=== PATIENT | male | born 1950 | race Caucasian/White ===

== ENCOUNTER 2017-11-03 15:05 | Emergency (ER) | payer MEDICARE, BC ==
[2017-11-03 15:22] VITALS: BP 144/90
[2017-11-03] MEDS ORDERED: MAALOX/HYOSCYAMINE/LIDOCAINE 45 ML BTL PO ONE (15:30)
[2017-11-03] MEDS ORDERED: SODIUM CHLORIDE FLUSH 10ML SYR IVF ONE (15:30)
[2017-11-03] MEDS ORDERED: MAALOX/HYOSCYAMINE/LIDOCAINE 45 ML BTL ONE (15:36)
[2017-11-03 16:12] LABS: BASOPHILS # (AUTO) 0.09 x10^3/uL (0-0.1); BASOPHILS % (AUTO) 1 % (0-1); EOSINOPHILS # (AUTO) 0.08 x10^3/uL (0-0.4); EOSINOPHILS % (AUTO) 1 % (1-7); LYMPHOCYTES # (AUTO) 2.18 x10^3/uL (1-3.4); LYMPHOCYTES % (AUTO) 25 % (22-44); MD NO; MEAN CORPUSCULAR HEMOGLOBIN 29.6 pg (27.5-34.5); MEAN CORPUSCULAR HGB CONC 33.7 g/dL (33.2-36.2); MEAN CORPUSCULAR VOLUME 87.8 fL (81-97); MEAN PLATELET VOLUME 7.7 fL (7.4-10.4); MONOCYTES # (AUTO) 0.34 x10^3/uL (0.2-0.8); MONOCYTES % (AUTO) 4 % (2-9); NEUTROPHILS % (AUTO) 70 % (42-75); PLATELET COUNT 244 x10^3/uL (130-400); RED BLOOD COUNT 4.94 x10^6/uL (4.38-5.82); RED CELL DISTRIBUTION WIDTH 13.7 % (9.4-14.8)
[2017-11-03 16:14] LABS: ALANINE AMINOTRANSFERASE 14 U/L (12-78); ALBUMIN 3.8 g/dL (3.4-5.0); ANION GAP 11 mmol/L (5-15); CALCIUM 8.2 mg/dL (8.5-10.1); CHLORIDE 103 mmol/L (98-107)
[2017-11-03 16:16] LABS: ALKALINE PHOSPHATASE 74 U/L (45-117); BILIRUBIN,TOTAL 0.5 mg/dL (0.2-1.0); CREATININE 0.89 mg/dL (0.7-1.3); TOTAL PROTEIN 7.1 g/dL (6.4-8.2)
[2017-11-03 16:23] LABS: TROPONIN I < 0.015 ng/mL (0.000-0.045)
[2017-11-03] MEDS ORDERED: OMNIPAQUE 350 MG/ML, 100ML BOTTLE ONE (17:10)
== END 2017-11-03 17:54 | disposition home or self-care (01) ==
LOC: ED 17:45
DX: K80.20 Calculus of gallbladder without cholecystitis without obstruction (principal)
CPT/HCPCS: 36415; 74177; 80053; 83690; 84484; 85025; 93005; 99285; Q9967

== ENCOUNTER 2017-12-03 09:30 | Inpatient (IN) | payer MEDICARE, BC ==
[~2017-12-03] VITALS: Ht 175.3 cm; Wt 109.8 kg
[2017-12-03] MEDS ORDERED: SODIUM CHLORIDE FLUSH 10ML SYR IVF ONE (10:00)
[2017-12-03 10:22] LABS: BASOPHILS # (AUTO) 0.08 x10^3/uL (0-0.1); BASOPHILS % (AUTO) 1 % (0-1); EOSINOPHILS # (AUTO) 0.28 x10^3/uL (0-0.4); EOSINOPHILS % (AUTO) 4 % (1-7); LYMPHOCYTES # (AUTO) 1.89 x10^3/uL (1-3.4); LYMPHOCYTES % (AUTO) 26 % (22-44); MD NO; MEAN CORPUSCULAR HEMOGLOBIN 30.2 pg (27.5-34.5); MEAN CORPUSCULAR HGB CONC 34.5 g/dL (33.2-36.2); MEAN CORPUSCULAR VOLUME 87.4 fL (81-97); MEAN PLATELET VOLUME 7.8 fL (7.4-10.4); MONOCYTES # (AUTO) 0.27 x10^3/uL (0.2-0.8); MONOCYTES % (AUTO) 4 % (2-9); NEUTROPHILS # (AUTO) 4.68 x10^3/uL (1.8-6.8); NEUTROPHILS % (AUTO) 65 % (42-75); PLATELET COUNT 223 x10^3/uL (130-400); RED BLOOD COUNT 4.86 x10^6/uL (4.38-5.82); RED CELL DISTRIBUTION WIDTH 13.6 % (9.4-14.8)
[2017-12-03 10:27] LABS: INTERNATIONAL NORMALIZED RATIO 1.04 (0.93-1.1); PROTHROMBIN TIME 10.8 Seconds (9.6-11.5)
[2017-12-03] MEDS ORDERED: DICY20TA3 PO (10:28)
[2017-12-03] MEDS ORDERED: CELE200C PO (10:28)
[2017-12-03] MEDS ORDERED: SIMV20TA3 PO (10:28)
[2017-12-03] MEDS ORDERED: TADA20TA PO (10:28)
[2017-12-03] MEDS ORDERED: BUPR150T73 PO (10:28)
[2017-12-03] MEDS ORDERED: OXYC15TA PO (10:28)
[2017-12-03] MEDS ORDERED: FINA5TAB4 PO (10:28)
[2017-12-03] MEDS ORDERED: CLON-364 PO (10:28)
[2017-12-03] MEDS ORDERED: GABA800T2 PO (10:28)
[2017-12-03] MEDS ORDERED: SILD25TA PO (10:28)
[2017-12-03] MEDS ORDERED: LANS30CA60 PO (10:28)
[2017-12-03] MEDS ORDERED: TRAZ300T2 PO (10:28)
[2017-12-03] MEDS ORDERED: ASPI-496 PO (10:28)
[2017-12-03 10:31] LABS: ALBUMIN 3.7 g/dL (3.4-5.0); ANION GAP 4 mmol/L (5-15); CALCIUM 8.5 mg/dL (8.5-10.1); CHLORIDE 108 mmol/L (98-107); CREATININE 1.09 mg/dL (0.7-1.3)
[2017-12-03 10:34] LABS: TROPONIN I < 0.015 ng/mL (0.000-0.045)
[2017-12-03 10:52] LABS: MICROSCOPIC NOT IND
[2017-12-03 10:54] LABS: CULTURE INDICATED? NO
[2017-12-03] MEDS ORDERED: SODIUM CHLORIDE FLUSH 10ML SYR IVF PRN (12:00)
[2017-12-03 13:30] VITALS: BP 110/57
[2017-12-03 19:18] VITALS: BP 120/77
[2017-12-03] MEDS: FINASTERIDE 5 MG TABLET PO SCH (20:00)
[2017-12-03] MEDS: SIMVASTATIN 20 MG TABLET PO SCH (20:00)
[2017-12-03] MEDS ORDERED: ZOLPIDEM 5MG TABLET PO ONE (21:00)
[2017-12-04 03:48] VITALS: BP 104/66
[2017-12-04 05:03] LABS: BASOPHILS # (AUTO) 0.08 x10^3/uL (0-0.1); BASOPHILS % (AUTO) 1 % (0-1); EOSINOPHILS # (AUTO) 0.31 x10^3/uL (0-0.4); EOSINOPHILS % (AUTO) 4 % (1-7); LYMPHOCYTES # (AUTO) 2.24 x10^3/uL (1-3.4); LYMPHOCYTES % (AUTO) 32 % (22-44); MD NO; MEAN CORPUSCULAR HEMOGLOBIN 29.5 pg (27.5-34.5); MEAN CORPUSCULAR HGB CONC 34.1 g/dL (33.2-36.2); MEAN CORPUSCULAR VOLUME 86.6 fL (81-97); MEAN PLATELET VOLUME 7.9 fL (7.4-10.4); MONOCYTES # (AUTO) 0.36 x10^3/uL (0.2-0.8); MONOCYTES % (AUTO) 5 % (2-9); NEUTROPHILS # (AUTO) 4.09 x10^3/uL (1.8-6.8); NEUTROPHILS % (AUTO) 58 % (42-75); PLATELET COUNT 193 x10^3/uL (130-400); RED CELL DISTRIBUTION WIDTH 13.3 % (9.4-14.8)
[2017-12-04 05:05] LABS: ANION GAP 6 mmol/L (5-15); CALCIUM 8.1 mg/dL (8.5-10.1); CHLORIDE 110 mmol/L (98-107)
[2017-12-04 05:06] LABS: CHOL/HDL RATIO 3.5; CHOLESTEROL, TOTAL 125 mg/dL (140-239); CREATININE 0.85 mg/dL (0.7-1.3); HDL CHOL % 29 % (26-37); HDL CHOLESTEROL (DIRECT) 36 mg/dL (40-60); LDL CHOLESTEROL,CALCULATED 61 mg/dL (54-169); LDL/HDL RATIO 1.7 (0.5-3.0); TRIGLYCERIDES 141 mg/dL (50-200); VLDL CHOLESTEROL 28 mg/dL (0-25)
[2017-12-04 06:58] VITALS: BP 134/85
[2017-12-04] MEDS: SODIUM CHLORIDE 0.9% 1,000 ML IV SCH ×2 (08:27→16:14)
[2017-12-04] MEDS ORDERED: CEFAZOLIN PMX 1GM/50ML 50 ML IVPB ONE (08:30)
[2017-12-04] MEDS: PANTOPROZOLE 40MG TABLET PO SCH (09:16)
[2017-12-04] MEDS: BUPROPION SR 150 MG TABLET PO SCH (09:16)
[2017-12-04] MEDS: ACETAMINOPHEN 325 MG TABLET PO PRN (12:20)
[2017-12-04 13:46] VITALS: BP 130/83
[2017-12-04] MEDS ORDERED: POTASSIUM CHLORIDE 20 MEQ TAB.ER.PRT PO ONE (14:30)
[2017-12-04 19:40] VITALS: BP 119/70
[2017-12-04] MEDS: FINASTERIDE 5 MG TABLET PO SCH (19:41)
[2017-12-04] MEDS: SIMVASTATIN 20 MG TABLET PO SCH (19:41)
[2017-12-05] MEDS: SODIUM CHLORIDE 0.9% 1,000 ML IV SCH ×3 (00:27→17:25)
[2017-12-05 02:00] VITALS: BP 119/74
[2017-12-05 05:05] LABS: BASOPHILS # (AUTO) 0.15 x10^3/uL (0-0.1); BASOPHILS % (AUTO) 2 % (0-1); EOSINOPHILS # (AUTO) 0.27 x10^3/uL (0-0.4); EOSINOPHILS % (AUTO) 4 % (1-7); LYMPHOCYTES # (AUTO) 2.15 x10^3/uL (1-3.4); LYMPHOCYTES % (AUTO) 31 % (22-44); MD NO; MEAN CORPUSCULAR HEMOGLOBIN 29.8 pg (27.5-34.5); MEAN CORPUSCULAR HGB CONC 34.4 g/dL (33.2-36.2); MEAN CORPUSCULAR VOLUME 86.5 fL (81-97); MEAN PLATELET VOLUME 7.9 fL (7.4-10.4); MONOCYTES # (AUTO) 0.37 x10^3/uL (0.2-0.8); MONOCYTES % (AUTO) 5 % (2-9); NEUTROPHILS # (AUTO) 4.06 x10^3/uL (1.8-6.8); NEUTROPHILS % (AUTO) 58 % (42-75); PLATELET COUNT 199 x10^3/uL (130-400); RED BLOOD COUNT 4.55 x10^6/uL (4.38-5.82); RED CELL DISTRIBUTION WIDTH 13.5 % (9.4-14.8)
[2017-12-05 05:16] LABS: CALCIUM 8.5 mg/dL (8.5-10.1); CHLORIDE 111 mmol/L (98-107)
[2017-12-05 05:19] LABS: ALBUMIN 3.2 g/dL (3.4-5.0); ANION GAP 6 mmol/L (5-15); CREATININE 0.81 mg/dL (0.7-1.3)
[2017-12-05 06:50] VITALS: BP 120/75
[2017-12-05] MEDS ORDERED: MIDAZOLAM 1 MG/ML, 5ML ONE (07:37)
[2017-12-05] MEDS ORDERED: CEFAZOLIN PMX 1GM/50ML 50 ML ONE (07:37)
[2017-12-05] MEDS ORDERED: CEFAZOLIN 1,000 MG ONE (07:37)
[2017-12-05] MEDS ORDERED: FENTANYL PF 100 MCG/2ML ONE (07:37)
[2017-12-05] MEDS ORDERED: LIDOCAINE/PF 1%, 30ML ONE (07:37)
[2017-12-05] MEDS ORDERED: HYDROcodone/APAP 5/325 TABLET PO PRN (09:00)
[2017-12-05] MEDS: SODIUM CHLORIDE FLUSH 10ML SYR IVF SCH ×2 (09:18→19:50)
[2017-12-05] MEDS: PANTOPROZOLE 40MG TABLET PO SCH (09:18)
[2017-12-05] MEDS: BUPROPION SR 150 MG TABLET PO SCH (09:19)
[2017-12-05] MEDS: ACETAMINOPHEN 325 MG TABLET PO PRN ×2 (13:08→19:50)
[2017-12-05 13:54] VITALS: BP 121/76
[2017-12-05] MEDS: CEFAZOLIN PMX 1GM/50ML 50 ML IVPB SCH (16:20)
[2017-12-05 18:43] VITALS: BP 119/76
[2017-12-05] MEDS: FINASTERIDE 5 MG TABLET PO SCH (19:50)
[2017-12-05] MEDS: SIMVASTATIN 20 MG TABLET PO SCH (22:10)
[2017-12-06] MEDS: CEFAZOLIN PMX 1GM/50ML 50 ML IVPB SCH (00:17)
[2017-12-06] MEDS: SODIUM CHLORIDE 0.9% 1,000 ML IV SCH ×3 (00:27→17:24)
[2017-12-06 02:10] VITALS: BP 130/84
[2017-12-06 07:11] VITALS: BP 129/83
[2017-12-06] MEDS: BUPROPION SR 150 MG TABLET PO SCH (09:04)
[2017-12-06] MEDS: ASPIRIN 325 MG TABLET PO SCH (09:04)
[2017-12-06] MEDS: PANTOPROZOLE 40MG TABLET PO SCH (09:04)
[2017-12-06] MEDS: SODIUM CHLORIDE FLUSH 10ML SYR IVF SCH ×2 (09:06→21:17)
[2017-12-06 13:25] VITALS: BP 100/66
[2017-12-06 19:10] VITALS: BP 127/84
[2017-12-06] MEDS: ATORVASTATIN 40 MG TABLET PO SCH (20:28)
[2017-12-06] MEDS: FINASTERIDE 5 MG TABLET PO SCH (21:17)
[2017-12-07] VITALS (7 sets, daily range): BP systolic 117–140; BP diastolic 69–87
[2017-12-07] MEDS: BUPROPION SR 150 MG TABLET PO SCH (09:27)
[2017-12-07] MEDS: PANTOPROZOLE 40MG TABLET PO SCH (09:27)
[2017-12-07] MEDS: ASPIRIN 325 MG TABLET PO SCH (09:27)
[2017-12-07] MEDS: SODIUM CHLORIDE FLUSH 10ML SYR IVF SCH ×2 (09:27→23:04)
[2017-12-07] MEDS ORDERED: PROPOFOL 10 MG/ML, 20ML ONE (16:31)
[2017-12-07] MEDS ORDERED: ROCURONIUM 10MG/ML,5ML ONE (16:31)
[2017-12-07] MEDS ORDERED: FENTANYL PF 250 MCG/5ML ONE (16:31)
[2017-12-07] MEDS ORDERED: CEFAZOLIN 1,000 MG ONE ×2 (16:32)
[2017-12-07] MEDS ORDERED: THROMBIN 20,000 UNIT VIAL TP ONE (16:41)
[2017-12-07] MEDS ORDERED: HEPARIN 1,000 UNITS/ML, 10ML ONE (16:41)
[2017-12-07] MEDS ORDERED: BUPIVACAINE/PF 0.25% ONE (16:41)
[2017-12-07] MEDS ORDERED: EPINEPHRINE 1 MG/ML, 1ML ONE (16:42)
[2017-12-07] MEDS ORDERED: ALBUTEROL SULFATE 2.5 MG/3 ML NPPB PRN (18:00)
[2017-12-07] MEDS ORDERED: LABETALOL 5MG/ML, 20ML IV PRN (18:00)
[2017-12-07] MEDS ORDERED: OXYcodone 5 MG/5 ML ORAL.SOL UDC PO PRN (18:00)
[2017-12-07] MEDS ORDERED: hydrALAzine 20 MG/ML, 1ML IV PRN ×2 (18:00→23:30)
[2017-12-07] MEDS ORDERED: HALOPERIDOL 5 MG/ML IV PRN (18:00)
[2017-12-07] MEDS ORDERED: EPHEDRINE 50 MG/ML, 1ML IVPush PRN (18:00)
[2017-12-07] MEDS ORDERED: METOPROLOL 1 MG/ML, 5ML IV PRN (18:00)
[2017-12-07] MEDS ORDERED: ACETAMINOPHEN 325 MG TABLET PO PRN (18:00)
[2017-12-07] MEDS ORDERED: PROTAMINE SULFATE 10 MG/ML, 5ML ONE (18:13)
[2017-12-07] MEDS ORDERED: NEOSTIGMINE 1 MG/ML, 10ML ONE (18:51)
[2017-12-07] MEDS ORDERED: ONDANSETRON 2MG/ML, 2ML ONE (18:51)
[2017-12-07] MEDS ORDERED: GLYCOPYRROLATE 0.4 MG/2 ML, 2ML ONE (18:51)
[2017-12-07] MEDS ORDERED: OXYcodone 5 MG/5 ML ORAL.SOL UDC ONE (19:10)
[2017-12-07] MEDS ORDERED: hydrALAzine 20 MG/ML, 1ML ONE (19:10)
[2017-12-07] MEDS ORDERED: MEPERIDINE/PF 25MG/0.5ML ONE (19:10)
[2017-12-07] MEDS ORDERED: FENTANYL PF 100 MCG/2ML ONE ×2 (19:29→21:21)
[2017-12-07] MEDS ORDERED: METOPROLOL 1 MG/ML, 5ML ONE (19:29)
[2017-12-07] MEDS ORDERED: MEPERIDINE/PF 25MG/0.5ML IVPush PRN (19:30)
[2017-12-07] MEDS: FENTANYL PF 100 MCG/2ML IV PRN ×5 (19:32→21:39)
[2017-12-07] MEDS ORDERED: MORPHINE SULFATE 4 MG/ML, 1ML ONE (20:57)
[2017-12-07] MEDS: MORPHINE SULFATE 4 MG/ML, 1ML IVPush PRN ×2 (21:00→21:17)
[2017-12-07] MEDS: ATORVASTATIN 40 MG TABLET PO SCH (23:04)
[2017-12-07] MEDS: FINASTERIDE 5 MG TABLET PO SCH (23:04)
[2017-12-07] MEDS ORDERED: LABETALOL 5MG/ML, 20ML IVPush PRN (23:30)
[2017-12-07] MEDS ORDERED: ONDANSETRON 2MG/ML, 2ML IV PRN (23:30)
[2017-12-07] MEDS ORDERED: MORPHINE SULFATE 4 MG/ML, 1ML IVPush PRN (23:30)
[2017-12-07] MEDS: POTASSIUM CHLORIDE 20 MEQ in LACTATED RINGERS 1,000 ML IV SCH (23:53)
[2017-12-07] MEDS: CEFAZOLIN PMX 2GM/100ML 100 ML IVPB SCH (23:54)
[2017-12-08] MEDS: MORPHINE SULFATE 4 MG/ML, 1ML IVPush PRN ×4 (00:17→04:25)
[2017-12-08 00:50] VITALS: BP 112/77
[2017-12-08 08:08] VITALS: BP 121/77
[2017-12-08] MEDS: BUPROPION SR 150 MG TABLET PO SCH (08:40)
[2017-12-08] MEDS: SODIUM CHLORIDE FLUSH 10ML SYR IVF SCH (08:40)
[2017-12-08] MEDS: CEFAZOLIN PMX 2GM/100ML 100 ML IVPB SCH (08:40)
[2017-12-08] MEDS: PANTOPROZOLE 40MG TABLET PO SCH (08:40)
[2017-12-08] MEDS: POTASSIUM CHLORIDE 20 MEQ in LACTATED RINGERS 1,000 ML IV SCH (08:41)
[2017-12-08] MEDS: ASPIRIN 325 MG TABLET PO SCH (08:42)
[2017-12-08] MEDS ORDERED: ASPI325T17 PO (14:14)
[2017-12-08 15:24] VITALS: BP 133/87
== END 2017-12-08 16:43 | disposition home or self-care (01) | DRG 242 ==
LOC: ED 09:55 → EDIP 11:46 → 5SO 12:48 → DCLOUNGE 12-08 16:27
PROVIDERS: ADMIT Internal Medicine; ATTEND Internal Medicine
PROC: 0JH606Z Insertion of Pacemaker, Dual Chamber into Chest Subcutaneous Tissue and Fascia, Open Approach (ICD-10-PCS; principal; 2017-12-05)
PROC: 02H63JZ Insertion of Pacemaker Lead into Right Atrium, Percutaneous Approach (ICD-10-PCS; 2017-12-05)
PROC: 02HK3JZ Insertion of Pacemaker Lead into Right Ventricle, Percutaneous Approach (ICD-10-PCS; 2017-12-05)
PROC: 03CN0ZZ Extirpation of Matter from Left External Carotid Artery, Open Approach (ICD-10-PCS; 2017-12-07)
PROC: 03CJ0Z6 (ICD-10-PCS; 2017-12-07)
PROC: 03CL0ZZ Extirpation of Matter from Left Internal Carotid Artery, Open Approach (ICD-10-PCS; 2017-12-07)
PROC: 03UJ0KZ Supplement Left Common Carotid Artery with Nonautologous Tissue Substitute, Open Approach (ICD-10-PCS; 2017-12-07)
DX: I49.5 Sick sinus syndrome (principal); G93.40 Encephalopathy, unspecified; I65.22 Occlusion and stenosis of left carotid artery; E78.5 Hyperlipidemia, unspecified; F32.9 Major depressive disorder, single episode, unspecified; K21.9 Gastro-esophageal reflux disease without esophagitis; N40.0 Benign prostatic hyperplasia without lower urinary tract symptoms; I25.2 Old myocardial infarction; Z82.49 Family history of ischemic heart disease and other diseases of the circulatory system; Z87.891 Personal history of nicotine dependence; Z90.49 Acquired absence of other specified parts of digestive tract
CPT/HCPCS: 33208; 36415; 70450; 70551; 71045; 80048; 80061; 81003; 82040; 83735; 84443; 84484; 85025; 85610; 85730; 93005; 93306; 93880; 99156; 99157; 99285; C1729; C1779; C1785; C1892; J0171; J0690; J1644; J2175; J2250; J2405; J2704; J2710; J2720; J3010; J3480; J3490; C1768; J0360; J7120

== ENCOUNTER → 2018-01-08 | Outpatient (CLI) | payer MEDICARE, BC ==
[~2018-01-08] MED LIST: ASPI-496 PO; ASPI325T17 PO; BUPR150T73 PO; CELE200C PO; CLON-364 PO; DICY20TA3 PO; FINA5TAB4 PO; GABA800T2 PO; LANS30CA60 PO; OXYC15TA PO; REGADENOSON 0.4 MG/5 ML SYRINGE ONE; SILD25TA PO; SIMV20TA3 PO; TADA20TA PO; TRAZ300T2 PO
== END | disposition home or self-care (01) ==
LOC: CFH 12:43
PROVIDERS: ATTEND Internal Medicine Cardiovascular Disease
DX: I48.0 Paroxysmal atrial fibrillation (principal); I67.9 Cerebrovascular disease, unspecified
CPT/HCPCS: 78452; 93017; A9502; J2785

== ENCOUNTER → 2018-05-11 | Outpatient (CLI) | payer MEDICARE, BC ==
[~2018-05-11] MED LIST changes: -CLON-364 PO; +CLON0.5T11 PO; -REGADENOSON 0.4 MG/5 ML SYRINGE ONE
== END | disposition home or self-care (01) ==
LOC: CVU 09:33
PROVIDERS: ATTEND Surgery
DX: I65.21 Occlusion and stenosis of right carotid artery (principal); R09.89 Other specified symptoms and signs involving the circulatory and respiratory systems; E78.5 Hyperlipidemia, unspecified; I25.2 Old myocardial infarction
CPT/HCPCS: 93880

== ENCOUNTER 2019-06-24 11:53 | Emergency (ER) | payer MEDICARE ==
[~2019-06-24] VITALS: Ht 175.3 cm; Wt 109.0 kg
[~2019-06-24 11:53] MED LIST changes: -GABA800T2 PO; +GABA800T5 PO
[2019-06-24 12:26] LABS: BASOPHILS # (AUTO) 0.03 x10^3/uL (0-0.1); BASOPHILS % (AUTO) 0 % (0-1); EOSINOPHILS # (AUTO) 0.09 x10^3/uL (0-0.4); EOSINOPHILS % (AUTO) 1 % (1-7); LYMPHOCYTES % (AUTO) 21 % (22-44); MD NO; MEAN CORPUSCULAR HEMOGLOBIN 30.7 pg (27.5-34.5); MEAN CORPUSCULAR HGB CONC 33.6 g/dL (33.2-36.2); MEAN CORPUSCULAR VOLUME 91.3 fL (81-97); MEAN PLATELET VOLUME 7.5 fL (7.4-10.4); MONOCYTES # (AUTO) 0.42 x10^3/uL (0.2-0.8); MONOCYTES % (AUTO) 5 % (2-9); NEUTROPHILS # (AUTO) 6.26 x10^3/uL (1.8-6.8); NEUTROPHILS % (AUTO) 73 % (42-75); PLATELET COUNT 263 x10^3/uL (130-400); RED BLOOD COUNT 4.32 x10^6/uL (4.38-5.82); RED CELL DISTRIBUTION WIDTH 14.9 % (9.4-14.8)
--- NOTE | 2019-06-24 12:28 | NUR ---
TASK RN: RECEIVED BEDSIDE REPORT FROM MELCHOR HERNANDEZ.
[2019-06-24] MEDS ORDERED: SODIUM CHLORIDE FLUSH 10ML SYR IVF ONE (12:30)
[2019-06-24 12:34] LABS: ALANINE AMINOTRANSFERASE 24 U/L (12-78); ALBUMIN 3.3 g/dL (3.4-5.0); ANION GAP 7 mmol/L (5-15); CALCIUM 8.4 mg/dL (8.5-10.1); CHLORIDE 109 mmol/L (98-107); CREATININE 1.03 mg/dL (0.7-1.3)
[2019-06-24 12:36] LABS: ALKALINE PHOSPHATASE 120 U/L (45-117); BILIRUBIN,TOTAL 0.3 mg/dL (0.2-1.0)
[2019-06-24 12:39] LABS: PROTHROMBIN TIME 10.5 Seconds (9.6-11.5)
--- NOTE | 2019-06-24 12:51 | NUR ---
TASK RN: PT SITTING BEDSIDE USING URNIAL. ASHLEIGH. BEDSIDE. PT STATES "IF I HAVE TO BE ADMITTED I'M OK WITH THAT. I JUST DON'T FEEL GOOD." NO C/O PAIN. NO OTHER NEEDS REQUESTED AT THIS TIME.
--- NOTE | 2019-06-24 13:05 | NUR ---
TASK RN: PT TO IMAGING.
--- NOTE | 2019-06-24 13:06 | NUR ---
TASK RN: BEDSIDE REPORT TO MELCHOR HERNANDEZ.
--- NOTE | 2019-06-24 13:11 | NUR ---
SBAR RPT REC'D FROM MELCHOR HERNANDEZ AND PT CARE ASSUMED. PT CURRENTLY IN RADIOLOGY
--- NOTE | 2019-06-24 13:23 | NUR ---
PT RTD FROM RADIOLOGY. REQUESTS TO AMBULATE TO BATHROOM, URINAL OFFERED PT DECLINES AND STATES DESIRE TO WALK TO BATHROOM PT OOB AND AMBULATED UPRIGHT W/O DIFFICULTY RN STANDYBY ESCORT. VOIDED AND RTD TO ROOM W/O INCIDENT. VSS.
[2019-06-24 13:24] VITALS: BP 139/60
--- NOTE | 2019-06-24 13:25 | NUR ---
PT TO RADIOLOGY FOR HIP XRAY
--- NOTE | 2019-06-24 14:00 | NUR ---
PT AMBULATED TO BATHROOM AND RTD W/O DIFFICULTY
--- NOTE | 2019-06-24 14:15 | NUR ---
DR PATRICK AT BEDSIDE, D/C PLAN DISCUSSED AND QUESTIONS ANSWERED.
--- NOTE | 2019-06-24 14:32 | NUR ---
TASK RN: Patient/Caregiver given discharge instructions and they have confirmed that they understand the instructions. Patient ambulatory with steady gait. PT LEFT WITH ALL PERSONAL BELONGINGS. WITH PT.
== END 2019-06-24 14:35 | disposition home or self-care (01) ==
LOC: ED 14:20
DX: S00.93XA Contusion of unspecified part of head, initial encounter (principal); M25.551 Pain in right hip; Z86.73 Personal history of transient ischemic attack (TIA), and cerebral infarction without residual deficits; W01.0XXA Fall on same level from slipping, tripping and stumbling without subsequent striking against object, initial encounter; Y93.89 Activity, other specified; Y92.89 Other specified places as the place of occurrence of the external cause; Y99.8 Other external cause status
CPT/HCPCS: 36415; 70450; 71045; 80053; 85025; 85610; 85730; 93005; 99284

== ENCOUNTER → 2019-08-19 | Outpatient (CLI) | payer MEDICARE ==
[~2019-08-19] MED LIST changes: +CLON-364 PO; -CLON0.5T11 PO; +SIMV20TA19 PO; -SIMV20TA3 PO
== END | disposition home or self-care (01) ==
LOC: CVU 15:32
PROVIDERS: ATTEND Surgery
DX: I65.23 Occlusion and stenosis of bilateral carotid arteries (principal)
CPT/HCPCS: 93880

== ENCOUNTER → 2020-02-13 | Outpatient (CLI) | payer MEDICARE ==
[~2020-02-13] MED LIST changes: -OXYC15TA PO; +OXYC15TA3 PO
== END | disposition home or self-care (01) ==
LOC: CVU 06:49
PROVIDERS: ATTEND Internal Medicine Cardiovascular Disease
DX: I08.0 Rheumatic disorders of both mitral and aortic valves (principal); I65.23 Occlusion and stenosis of bilateral carotid arteries; R07.89 Other chest pain; I67.9 Cerebrovascular disease, unspecified
CPT/HCPCS: 93306; 93880

== ENCOUNTER → 2020-03-19 | Outpatient (CLI) | payer MEDICARE ==
[~2020-03-19] MED LIST changes: +REGADENOSON 0.4 MG/5 ML SYRINGE ONE
== END | disposition home or self-care (01) ==
LOC: CFH 07:32
PROVIDERS: ATTEND Internal Medicine Cardiovascular Disease
DX: I21.19 ST elevation (STEMI) myocardial infarction involving other coronary artery of inferior wall (principal); R07.89 Other chest pain; I67.9 Cerebrovascular disease, unspecified
CPT/HCPCS: 78452; 93017; A9502; J2785

== ENCOUNTER 2020-09-28 11:27 | Emergency (ER) | payer MEDICARE ==
[~2020-09-28] VITALS: Ht 175.3 cm; Wt 108.8 kg
[~2020-09-28 11:27] MED LIST changes: -DICY20TA3 PO; +DICY20TA4 PO; -REGADENOSON 0.4 MG/5 ML SYRINGE ONE
--- NOTE | 2020-09-28 12:21 | NUR ---
PT CAME IN CO SOB X 2 MONTHS. PT BREATHING IN SHALLOW WITH SOME GRUNTING. HE REPORTS THAT IT GETS WORSE WITH ACTIVITY. EKG COMPLETE. MD BEDSIDE FOR ASSESSMENT. BLANKET PROVIDED. CONNECTED TO ALL MONITORING EQUIPMENT
[2020-09-28] MEDS ORDERED: SODIUM CHLORIDE FLUSH 10ML SYR IVF ONE (12:30)
--- NOTE | 2020-09-28 12:48 | NUR ---
PT BACK FROM X RAY. RESTING IN [facility].
[2020-09-28 13:12] LABS: BASOPHILS % (AUTO) 1 % (0-1); EOSINOPHILS % (AUTO) 2 % (1-7); LYMPHOCYTES % (AUTO) 23 % (22-44); MD NO; MEAN CORPUSCULAR HEMOGLOBIN 29.3 pg (27.5-34.5); MEAN CORPUSCULAR HGB CONC 33.3 g/dL (33.2-36.2); MEAN PLATELET VOLUME 7.5 fL (7.4-10.4); MONOCYTES % (AUTO) 5 % (2-9); NEUTROPHILS % (AUTO) 69 % (42-75); PLATELET COUNT 229 x10^3/uL (130-400); RED BLOOD COUNT 4.52 x10^6/uL (4.38-5.82); RED CELL DISTRIBUTION WIDTH 15.7 % (9.4-14.8)
[2020-09-28 13:22] LABS: ALANINE AMINOTRANSFERASE 21 U/L (12-78); ALBUMIN 3.7 g/dL (3.4-5.0); ANION GAP 3 mmol/L (5-15); CALCIUM 8.8 mg/dL (8.5-10.1); CHLORIDE 106 mmol/L (98-107); CREATININE 0.93 mg/dL (0.7-1.3)
[2020-09-28 13:26] LABS: ALKALINE PHOSPHATASE 102 U/L (45-117); BILIRUBIN,TOTAL 0.4 mg/dL (0.2-1.0); TOTAL PROTEIN 7.1 g/dL (6.4-8.2); TROPONIN I < 0.015 ng/mL (0.000-0.045)
[2020-09-28 14:02] VITALS: BP 129/78
--- NOTE | 2020-09-28 14:17 | NUR ---
AMBULATED PT WITH PULSE OX ABOUT 500 FEET. PULSE OX MEASURED 91-92%. HR DID CLIMB TO ABOUT 110 AT THE END OF THE WALK. PT STATED HE FELT TIRED AND SOB
== END 2020-09-28 15:32 | disposition home or self-care (01) ==
LOC: ED 13:54
DX: R06.00 Dyspnea, unspecified (principal); R49.0 Dysphonia; R68.2 Dry mouth, unspecified; R07.9 Chest pain, unspecified; R94.31 Abnormal electrocardiogram [ECG] [EKG]; I48.91 Unspecified atrial fibrillation; Z90.49 Acquired absence of other specified parts of digestive tract; Z86.73 Personal history of transient ischemic attack (TIA), and cerebral infarction without residual deficits
CPT/HCPCS: 36415; 71046; 80053; 84484; 85025; 93005; 99285

== ENCOUNTER → 2020-10-08 | Outpatient (CLI) | payer MEDICARE ==
[~2020-10-08] MED LIST changes: +OMNIPAQUE 350 MG/ML, 100ML BOTTLE ONE
== END | disposition home or self-care (01) ==
LOC: CFH 09:52
PROVIDERS: ATTEND Nurse Practitioner Family
DX: R91.8 Other nonspecific abnormal finding of lung field (principal); I70.0 Atherosclerosis of aorta; R06.00 Dyspnea, unspecified; J98.4 Other disorders of lung; I25.10 Atherosclerotic heart disease of native coronary artery without angina pectoris; M51.34 Other intervertebral disc degeneration, thoracic region; I35.8 Other nonrheumatic aortic valve disorders
CPT/HCPCS: 71275; Q9967

== ENCOUNTER 2020-12-12 11:41 | Observation (INO) | payer MEDICARE ==
[~2020-12-12] VITALS: Ht 175.3 cm; Wt 106.9 kg
[~2020-12-12 11:41] MED LIST changes: -OMNIPAQUE 350 MG/ML, 100ML BOTTLE ONE
--- NOTE | 2020-12-12 12:20 | NUR ---
PT HAS CO SOB AND WORSENING PAST COUPLE DAYS. STATES HE CANNOT CATCH BREATH. DENIES CP, COUHG OR FEVER. NO NAUSE. PT ALSO STATES HIS BALANCE IS OFF. NO NEURO SYMPTOMS INVOLVED. PT ON J[employer].
[2020-12-12 12:58] LABS: BASOPHILS % (AUTO) 1 % (0-1); EOSINOPHILS % (AUTO) 2 % (1-7); LYMPHOCYTES % (AUTO) 21 % (22-44); MEAN CORPUSCULAR HEMOGLOBIN 30.1 pg (27.5-34.5); MONOCYTES % (AUTO) 5 % (2-9); NEUTROPHILS % (AUTO) 71 % (42-75); PLATELET COUNT 245 x10^3/uL (130-400); RED BLOOD COUNT 4.36 x10^6/uL (4.38-5.82); RED CELL DISTRIBUTION WIDTH 14.8 % (9.4-14.8)
[2020-12-12 12:59] LABS: MD NO
[2020-12-12] MEDS ORDERED: METHOCARBAMOL 750 MG TABLET PO ONE (13:00)
[2020-12-12] MEDS ORDERED: KETOROLAC 30 MG/1 ML IM ONE (13:00)
[2020-12-12] MEDS ORDERED: KETOROLAC 30 MG/1 ML ONE (13:06)
[2020-12-12] MEDS ORDERED: METHOCARBAMOL 750 MG TABLET ONE ×2 (13:06→13:07)
[2020-12-12 13:11] LABS: ALBUMIN 3.3 g/dL (3.4-5.0); ANION GAP 1 mmol/L (5-15); CALCIUM 8.4 mg/dL (8.5-10.1); CHLORIDE 109 mmol/L (98-107)
[2020-12-12 13:18] LABS: ALANINE AMINOTRANSFERASE 18 U/L (12-78); ALKALINE PHOSPHATASE 108 U/L (45-117); BILIRUBIN,TOTAL 0.5 mg/dL (0.2-1.0); CREATININE 0.92 mg/dL (0.7-1.3); TROPONIN I < 0.015 ng/mL (0.000-0.045)
--- NOTE | 2020-12-12 13:20 | NUR ---
PT RESTING, CALL LIGHT IN REACH. AWAITING LABS
--- NOTE | 2020-12-12 14:30 | NUR ---
PT RESTING, AMBULATED TO BATHROOM W STEADY GAIT
--- NOTE | 2020-12-12 15:28 | NUR ---
seen by hospitalist.
[2020-12-12] MEDS ORDERED: ACETAMINOPHEN 325 MG TABLET PO PRN (16:00)
[2020-12-12] MEDS ORDERED: ENOXAPARIN 40 MG/0.4 ML SQ SCH (16:17)
[2020-12-12 16:31] LABS: TROPONIN I < 0.015 ng/mL (0.000-0.045)
--- NOTE | 2020-12-12 16:49 | NUR ---
REPORT TO ELIZ
[2020-12-12 17:26] VITALS: BP 140/100
[2020-12-12] MEDS ORDERED: OMNIPAQUE 350 MG/ML, 100ML BOTTLE ONE (18:00)
[2020-12-12 18:35] VITALS: BP 141/100
[2020-12-12] MEDS ORDERED: MELATONIN 5 MG TABLET PO PRN (19:00)
[2020-12-12 19:04] VITALS: BP 142/68
[2020-12-12] MEDS: APIXABAN 5 MG TABLET PO SCH (20:38)
[2020-12-12] MEDS ORDERED: ATORVASTATIN 80 MG TABLET PO SCH (21:00)
[2020-12-12 21:45] LABS: TROPONIN I < 0.015 ng/mL (0.000-0.045)
[2020-12-13 02:00] VITALS: BP_SYST 117; BP_SYST 123; BP_SYST 93; BP_DIAS 36; BP_DIAS 63; BP_DIAS 86
[2020-12-13 02:54] VITALS: BP 125/80
[2020-12-13 02:55] VITALS: BP 125/80
[2020-12-13 02:56] VITALS: BP_SYST 117; BP_SYST 93; BP_DIAS 36; BP_DIAS 63
[2020-12-13 05:42] LABS: BASOPHILS % (AUTO) 1 % (0-1); EOSINOPHILS % (AUTO) 3 % (1-7); LYMPHOCYTES % (AUTO) 29 % (22-44); MEAN CORPUSCULAR HEMOGLOBIN 30.1 pg (27.5-34.5); MEAN CORPUSCULAR HGB CONC 34.6 g/dL (33.2-36.2); MEAN PLATELET VOLUME 8.1 fL (7.4-10.4); MONOCYTES % (AUTO) 6 % (2-9); NEUTROPHILS % (AUTO) 61 % (42-75); PLATELET COUNT 205 x10^3/uL (130-400); RED BLOOD COUNT 4.13 x10^6/uL (4.38-5.82); RED CELL DISTRIBUTION WIDTH 14.9 % (9.4-14.8)
[2020-12-13 05:43] LABS: ALANINE AMINOTRANSFERASE 15 U/L (12-78); ANION GAP 4 mmol/L (5-15); CALCIUM 8.2 mg/dL (8.5-10.1); CHLORIDE 110 mmol/L (98-107)
[2020-12-13 05:44] LABS: MD NO
[2020-12-13 05:52] LABS: ALKALINE PHOSPHATASE 104 U/L (45-117); BILIRUBIN,TOTAL 0.6 mg/dL (0.2-1.0); CHOL/HDL RATIO 2.9; CHOLESTEROL, TOTAL 123 mg/dL (140-239); CREATININE 0.73 mg/dL (0.7-1.3); HDL CHOL % 34 % (26-37); HDL CHOLESTEROL (DIRECT) 42 mg/dL (40-60); LDL CHOLESTEROL,CALCULATED 62 mg/dL (54-169); LDL/HDL RATIO 1.5 (0.5-3.0); TOTAL PROTEIN 6.3 g/dL (6.4-8.2); TRIGLYCERIDES 94 mg/dL (50-200); VLDL CHOLESTEROL 19 mg/dL (0-25)
[2020-12-13 07:58] VITALS: BP 121/86
[2020-12-13 08:49] LABS: MICROSCOPIC AUTO
[2020-12-13] MEDS ORDERED: FINASTERIDE 5 MG TABLET PO SCH (09:00)
[2020-12-13] MEDS: APIXABAN 5 MG TABLET PO SCH (09:05)
[2020-12-13] MEDS ORDERED: HYDR50TA99 PO (09:54)
== END 2020-12-13 12:54 | disposition home or self-care (01) ==
LOC: ED 12:06 → EDIP 15:46 → INTOOBSV 15:46 → 4WST 17:27
PROVIDERS: ADMIT Hospitalist; ATTEND Hospitalist
DX: R06.00 Dyspnea, unspecified (principal); R00.0 Tachycardia, unspecified; E66.01 Morbid (severe) obesity due to excess calories; D64.9 Anemia, unspecified; G47.30 Sleep apnea, unspecified; R42 Dizziness and giddiness; R91.8 Other nonspecific abnormal finding of lung field; I48.91 Unspecified atrial fibrillation; D68.69 Other thrombophilia; K21.9 Gastro-esophageal reflux disease without esophagitis; E78.5 Hyperlipidemia, unspecified; N40.0 Benign prostatic hyperplasia without lower urinary tract symptoms; G47.00 Insomnia, unspecified; M41.9 Scoliosis, unspecified; M43.16 Spondylolisthesis, lumbar region; N64.4 Mastodynia; I25.2 Old myocardial infarction; F10.21 Alcohol dependence, in remission; Z79.01 Long term (current) use of anticoagulants; Z79.899 Other long term (current) drug therapy; Z86.73 Personal history of transient ischemic attack (TIA), and cerebral infarction without residual deficits; Z87.891 Personal history of nicotine dependence; Z66 Do not resuscitate; Z96.641 Presence of right artificial hip joint
CPT/HCPCS: 36415; 71045; 71275; 72110; 80053; 80061; 81001; 83735; 83880; 84100; 84443; 84484; 85025; 85379; 93005; 97162; 99285; G0378; Q0177; Q9967

== ENCOUNTER → 2021-03-01 | Outpatient (CLI) | payer MEDICARE ==
[~2021-03-01] MED LIST changes: +HYDR50TA99 PO
== END | disposition home or self-care (01) ==
LOC: CVU 12:45
PROVIDERS: ATTEND Student in an Organized Health Care Education/Training Program
DX: I08.2 Rheumatic disorders of both aortic and tricuspid valves (principal); R07.89 Other chest pain; R53.83 Other fatigue
CPT/HCPCS: 93306; 93356